=== PATIENT | male | born 1960 | race African-American/Black ===

== ENCOUNTER 2019-08-12 08:10 | Inpatient (IN) | payer MEDICAID ==
[~2019-08-12] VITALS: Ht 180.3 cm; Wt 92.1 kg
[2019-08-12] MEDS ORDERED: FUROSEMIDE 40MG/4ML VIAL IV ONE (08:45)
[2019-08-12] MEDS ORDERED: NITROGLYCERIN 0.4MG TABLET SL SL PRN (08:45)
[2019-08-12] MEDS ORDERED: ASPIRIN 81MG TABLET PO ONE (08:45)
[2019-08-12 08:51] LABS: BASOPHILS % 1.4 % (0.0-2.0); EOSINOPHILS % 1.3 % (0.0-5.0); HEMATOCRIT. 39.4 % (42.0-52.0); HEMOGLOBIN. 12.5 g/dL (14.0-18.0); LYMPHOCYTES % 14.5 % (20.0-50.0); MEAN CORPUSCULAR VOLUME 88.1 fL (80.0-94.0); MONOCYTES % 8.9 % (2.0-8.0); NEUTROPHILS % 73.9 % (40.0-76.0); PLATELET 175 x1000/uL (130-400); RED BLOOD CELL COUNT 4.47 mill/uL (4.7-6.1); RED CELL DISTRIBUTION WIDTH 19.3 % (11.6-14.6)
[2019-08-12 08:57] LABS: CHLORIDE 103 mEq/L (98-107)
[2019-08-12 09:10] LABS: BG BASE EXCESS -1.1 mmol/L (-2.0-2.0); BG BILEVEL POS AIRWAY PRESSURE 15/5; BG CARBOXYHEMOGLOBIN 0.3 % (0.5-1.5); BG DEOXYHEMOGLOBIN 1.5 % (0.0-5.0); BG FRACTION INSPIRED OXYGEN 50; BG HCO3 ACT 23.7 mmol/L (22.0-26.0); BG METHEMOGLOBIN 0.3 % (0.0-1.5); BG OXYGEN SATURATION 98.5 % (92.0-98.5); BG OXYHEMOGLOBIN 97.9 % (94.0-97.0); BG PCO2 39.7 mmHg (35.0-45.0); BG PH 7.393 (7.350-7.450); BG PO2 142.7 mmHg (75.0-100.0); BG SAMPLE SITE RIGHT RADIAL; BG TOTAL HEMOGLOBIN 12.6 g/dL (12.0-18.0); BG VENT MODE MASK - BIPAP
[2019-08-12] MEDS ORDERED: DIPHENHYDRAMINE 50MG/ML VIAL IV PRN (13:30)
[2019-08-12] MEDS ORDERED: CLONIDINE 0.1MG TABLET PO PRN (13:30)
[2019-08-12] MEDS ORDERED: ONDANSETRON HCL 4MG/2ML INJ IV PRN (13:30)
[2019-08-12 15:15] LABS: PHOSPHORUS 3.5 mg/dL (2.5-4.9)
[2019-08-12] MEDS ORDERED: SPIRONOLACTONE 25MG TABLET PO NR (16:00)
[2019-08-12] MEDS ORDERED: IPRATROPIUM/ALBUTEROL 0.5-3(2.5)MG/3ML NEB HHN PRN (16:15)
[2019-08-12] MEDS ORDERED: FUROSEMIDE 40MG/4ML VIAL IVP NR (16:31)
[2019-08-12 20:52] LABS: *BARBITURATES SCREEN URINE NEGATIVE (NEGATIVE); *BENZODIAZEPINES SCREEN URINE NEGATIVE (NEGATIVE); *COCAINE SCREEN URINE PRESUMTIVE POSITIVE (NEGATIVE); METHADONE URINE SCREEN NEGATIVE (NEGATIVE); OPIATES URINE SCREEN NEGATIVE (NEGATIVE)
[2019-08-12 20:53] LABS: *AMPHETAMINES SCREEN URINE NEGATIVE (NEGATIVE); CANNABINOID URINE SCREEN NEGATIVE (NEGATIVE); PHENCYCLIDINE URINE SCREEN NEGATIVE (NEGATIVE)
[2019-08-12 21:37] LABS: INR 1.5; PROTHROMBIN TIME 15.2 sec (9.6-11.0)
[2019-08-12] MEDS ORDERED: LOSARTAN POTASSIUM 25 MG TABLET PO NR (22:13)
[2019-08-13] VITALS (11 sets, daily range): BP systolic 120–158; BP diastolic 50–116
[2019-08-13] MEDS: IPRATROPIUM/ALBUTEROL 0.5-3(2.5)MG/3ML NEB HHN SCH ×3 (06:40→20:41)
[2019-08-13] MEDS ORDERED: SODIUM BICARBONATE 4% (2.4MEQ) 5ML VIAL IV ONE (07:49)
[2019-08-13] MEDS ORDERED: LIDOCAINE HCL 1% 20ML VIAL (Pyxis) INJ ONE (07:49)
[2019-08-13] MEDS ORDERED: LOSARTAN POTASSIUM 25 MG TABLET PO SCH (09:00)
[2019-08-13] MEDS ORDERED: FUROSEMIDE 40MG/4ML VIAL IVP SCH (09:00)
[2019-08-13] MEDS ORDERED: SPIRONOLACTONE 25MG TABLET PO SCH ×2 (09:00→17:15)
[2019-08-13] MEDS: SPIRONOLACTONE 50MG TABLET PO SCH (16:25)
[2019-08-13] MEDS: LOSARTAN POTASSIUM 25 MG TABLET PO SCH (21:39)
[2019-08-13] MEDS: FUROSEMIDE 100MG/10ML VIAL IVP SCH (21:39)
[2019-08-14] VITALS (12 sets, daily range): BP systolic 127–159; BP diastolic 70–98
[2019-08-14] MEDS: IPRATROPIUM/ALBUTEROL 0.5-3(2.5)MG/3ML NEB HHN SCH ×4 (02:18→20:49)
[2019-08-14 08:31] LABS: CHLORIDE 103 mEq/L (98-107)
[2019-08-14 08:37] LABS: HEMATOCRIT. 33.3 % (42.0-52.0); HEMOGLOBIN. 10.7 g/dL (14.0-18.0); MEAN CORPUSCULAR HEMOGLOBIN 28.1 pg (28.0-32.0); MEAN CORPUSCULAR VOLUME 87.7 fL (80.0-94.0); MEAN PLATELET VOLUME 8.9 fl (7.4-10.4); PLATELET 134 x1000/uL (130-400)
[2019-08-14] MEDS: LOSARTAN POTASSIUM 25 MG TABLET PO SCH ×2 (08:38→21:45)
[2019-08-14] MEDS: SPIRONOLACTONE 50MG TABLET PO SCH (08:38)
[2019-08-14] MEDS: FUROSEMIDE 100MG/10ML VIAL IVP SCH ×2 (08:38→21:45)
[2019-08-14] MEDS ORDERED: POTASSIUM CHLORIDE 20MEQ TABLET SR PO NR (13:15)
[2019-08-14 14:23] LABS: PLATELET ESTIMATE NORMAL
[2019-08-14] MEDS ORDERED: MAGNESIUM 2 G PREMIX 50 ML IV NR (15:00)
[2019-08-15] VITALS (8 sets, daily range): BP systolic 110–136; BP diastolic 58–98
[2019-08-15] MEDS: IPRATROPIUM/ALBUTEROL 0.5-3(2.5)MG/3ML NEB HHN SCH ×4 (02:06→20:52)
[2019-08-15] MEDS ORDERED: SIMETHICONE 80MG TABLET CHEW PO PRN (08:15)
[2019-08-15] MEDS: LOSARTAN POTASSIUM 25 MG TABLET PO SCH ×2 (09:12→21:00)
[2019-08-15] MEDS: SPIRONOLACTONE 50MG TABLET PO SCH (09:12)
[2019-08-15] MEDS: POTASSIUM CHLORIDE 20MEQ TABLET SR PO SCH (09:12)
[2019-08-15] MEDS: FUROSEMIDE 100MG/10ML VIAL IVP SCH ×2 (09:12→22:19)
[2019-08-15] MEDS: ENOXAPARIN 40MG/0.4ML SYR SUBCUT SCH (09:13)
[2019-08-15] MEDS ORDERED: MAGNESIUM 1 G PREMIX 100 ML IV SCH (16:00)
[2019-08-15 17:47] LABS: HEMATOCRIT. 33.8 % (42.0-52.0); MEAN CORPUSCULAR HEMOGLOBIN 28.3 pg (28.0-32.0); MEAN CORPUSCULAR VOLUME 87.2 fL (80.0-94.0); MEAN PLATELET VOLUME 8.2 fl (7.4-10.4); PLATELET 138 x1000/uL (130-400); RED BLOOD CELL COUNT 3.87 mill/uL (4.7-6.1)
[2019-08-15 18:24] LABS: PLATELET ESTIMATE NORMAL
[2019-08-15 18:56] LABS: CHLORIDE 101 mEq/L (98-107)
[2019-08-16] VITALS: BP 106/71
[2019-08-16] MEDS: IPRATROPIUM/ALBUTEROL 0.5-3(2.5)MG/3ML NEB HHN SCH ×2 (02:29→09:13)
[2019-08-16 04:00] VITALS: BP 117/65
[2019-08-16 08:00] VITALS: BP 102/67
[2019-08-16] MEDS ORDERED: SPIRONOLACTONE 50MG TABLET PO SCH (09:00)
[2019-08-16] MEDS: LOSARTAN POTASSIUM 25 MG TABLET PO SCH (09:00)
[2019-08-16 09:10] LABS: BASOPHILS % 1.5 % (0.0-2.0); EOSINOPHILS % 2.5 % (0.0-5.0); HEMATOCRIT. 35.1 % (42.0-52.0); HEMOGLOBIN. 11.4 g/dL (14.0-18.0); LYMPHOCYTES % 16.6 % (20.0-50.0); MEAN CORPUSCULAR HEMOGLOBIN 28.4 pg (28.0-32.0); MEAN CORPUSCULAR VOLUME 87.8 fL (80.0-94.0); MEAN PLATELET VOLUME 8.4 fl (7.4-10.4); MONOCYTES % 14.9 % (2.0-8.0); NEUTROPHILS % 64.5 % (40.0-76.0); PLATELET 135 x1000/uL (130-400); RED CELL DISTRIBUTION WIDTH 18.8 % (11.6-14.6)
[2019-08-16] MEDS: POTASSIUM CHLORIDE 20MEQ TABLET SR PO SCH (09:23)
[2019-08-16] MEDS: ENOXAPARIN 40MG/0.4ML SYR SUBCUT SCH (09:23)
[2019-08-16] MEDS: FUROSEMIDE 100MG/10ML VIAL IVP SCH (09:49)
[2019-08-16] MEDS ORDERED: FURO40TA5 MT (12:53)
[2019-08-16] MEDS ORDERED: MY80 PO (12:53)
[2019-08-16] MEDS ORDERED: LOSA25TA3 PO (12:53)
[2019-08-16] MEDS ORDERED: ALD50 PO (12:53)
[2019-08-16 15:45] VITALS: BP 112/68
[2019-08-16 16:00] VITALS: BP 112/68
[2019-08-17 06:10] LABS: HIV SCREEN 4G Non Reactive (Non Reactive)
== END 2019-08-16 16:25 | disposition home or self-care (01) | DRG 194 ==
LOC: ER 08:10 → 5EST 11:19 → EDBEDREQSVC 11:27 → EDBEDREQ 11:27 → ENRESERV 08-13 00:04
PROVIDERS: ADMIT Internal Medicine; ATTEND Internal Medicine
PROC: 5A09357 Assistance with Respiratory Ventilation, Less than 24 Consecutive Hours, Continuous Positive Airway Pressure (ICD-10-PCS; 2019-08-12)
PROC: 0W9G3ZZ Drainage of Peritoneal Cavity, Percutaneous Approach (ICD-10-PCS; principal; 2019-08-13)
PROC: 5A09357 Assistance with Respiratory Ventilation, Less than 24 Consecutive Hours, Continuous Positive Airway Pressure (ICD-10-PCS; 2019-08-13)
PROC: 5A09357 Assistance with Respiratory Ventilation, Less than 24 Consecutive Hours, Continuous Positive Airway Pressure (ICD-10-PCS; 2019-08-14)
DX: I13.0 Hypertensive heart and chronic kidney disease with heart failure and stage 1 through stage 4 chronic kidney disease, or unspecified chronic kidney disease (principal); J96.00 Acute respiratory failure, unspecified whether with hypoxia or hypercapnia; E44.0 Moderate protein-calorie malnutrition; N17.9 Acute kidney failure, unspecified; E11.22 Type 2 diabetes mellitus with diabetic chronic kidney disease; I27.81 Cor pulmonale (chronic); D68.9 Coagulation defect, unspecified; E83.42 Hypomagnesemia; I50.23 Acute on chronic systolic (congestive) heart failure; I42.0 Dilated cardiomyopathy; J44.9 Chronic obstructive pulmonary disease, unspecified; M71.22 Synovial cyst of popliteal space [Baker], left knee; R79.89 Other specified abnormal findings of blood chemistry; I50.82 Biventricular heart failure; D64.9 Anemia, unspecified; E03.9 Hypothyroidism, unspecified; E66.9 Obesity, unspecified; F14.10 Cocaine abuse, uncomplicated; N18.9 Chronic kidney disease, unspecified; E78.5 Hyperlipidemia, unspecified; B18.2 Chronic viral hepatitis C; K74.60 Unspecified cirrhosis of liver; Z59.0 Homelessness; Z82.49 Family history of ischemic heart disease and other diseases of the circulatory system; Z87.891 Personal history of nicotine dependence; Z91.19 Patient's noncompliance with other medical treatment and regimen; Z68.28 Body mass index [BMI] 28.0-28.9, adult; Z71.51 Drug abuse counseling and surveillance of drug abuser
CPT/HCPCS: 36415; 36600; 49083; 71045; 76700; 76705; 80048; 80053; 80076; 80305; 82375; 82728; 82805; 82962; 83540; 83550; 83735; 83880; 84100; 84484; 85025; 87389; 93005; 93306; 93970; 94640; 94660; 97162; 99291; J1650; J1940; J3475; J3490